=== PATIENT | female | born 1965 | race African-American/Black ===

== ENCOUNTER 2019-07-28 03:31 | Observation (INO) ==
[2019-07-28] MEDS ORDERED: SODIUM CHLORIDE 0.9% 500 ML IV STA (03:51)
[2019-07-28] MEDS ORDERED: ALUM/MAG/SIMETH/LIDO VISC 1:1 30 ML BOTTLE PO STA (03:51)
[2019-07-28] MEDS ORDERED: ONDANSETRON 4 MG/2 ML VIAL IV STA ×2 (03:51→05:22)
[2019-07-28] MEDS ORDERED: PANTOPRAZOLE 40 MG VIAL IV STA (03:51)
[2019-07-28] MEDS ORDERED: PANTOPRAZOLE 40 MG VIAL IV ONE (03:51)
[2019-07-28] MEDS ORDERED: ONDANSETRON 4 MG/2 ML VIAL ONE (03:51)
[2019-07-28] MEDS ORDERED: ALUM/MAG/SIMETH/LIDO VISC 1:1 30 ML BOTTLE PO ONE (03:51)
[2019-07-28 04:14] LABS: Basophils % 0.3 % (0.0-0.8); Eosinophils % 0.4 % (0.00-10.9); Hematocrit 45.1 VOL% (35.7-47.0); Hemoglobin 14.8 GM/DL (12.0-16.0); Immature Granulocytes % 0.2 %; Immature Granulocytes Absolute 0.02 #; Lymphocytes # 2.8 10*3/uL (1.4-4.0); Lymphocytes % 25.8 % (21.3-54.2); Mean Corpuscular HGB Conc 32.8 GM/DL (32-36); Mean Corpuscular Volume 86.6 FL (87-102); Monocytes % 7.6 % (1.7-12.7); Neutrophils % 65.7 % (38.7-73.9); Platelet Count 378 T/CUMM (130-400); Red Blood Count 5.21 MC/CUMM (3.8-5.5); Red Cell Distribution Width 12.6 % (9.3-17.3); White Blood Count 10.7 T/CUMM (4-12)
[2019-07-28 04:48] LABS: Apearance,Urine Slightly Hazy (Clear); Bilirubin,Urine Negative (Negative); Blood, Urine Negative (Negative); Glucose,Urine (UA) >=500 mg/dL (Negative); Ketones,Urine 20 mg/dL (Negative); Mucus,Urine Occasional /LPF (Occasional); Nitrite,Urine Negative (Negative); Protein,Urine 30 MG/DL; RBC,Urine 1 /HPF (0-4); Squamous Epithelial Cell,Urine Occasional /HPF (0-10); Urine Color Yellow (Yellow); Urine Specific Gravity 1.036 (1.001-1.035); WBC,Urine 2 /HPF (0-6)
[2019-07-28 04:48] LABS: Albumin 3.2 G/DL (3.4-5.0); Bilirubin,Total 0.4 MG/DL (0.2-1.0); Calcium 9.3 MG/DL (8.5-10.1); Osmolality,Calculated 278.2 MOS/KG (273-304); Total Protein 8.5 G/DL (6.4-8.3)
[2019-07-28] MEDS: MAGNESIUM CITRATE 300 ML BOTTLE PO STA ×2 (04:58→05:27)
[2019-07-28] MEDS ORDERED: MAGNESIUM CITRATE 300 ML BOTTLE ONE (05:00)
[2019-07-28] MEDS ORDERED: SODIUM CHLORIDE 0.9% 1,000 ML IV STA (05:22)
[2019-07-28] MEDS ORDERED: HYDROmorphone 2 MG/1 ML VIAL IV ONE (05:22)
[2019-07-28] MEDS ORDERED: DEXTROSE 50% 25 GM/50 ML SYRINGE IV PRN (05:31)
[2019-07-28] MEDS ORDERED: ONDANSETRON 4 MG/2 ML VIAL IV PRN (05:31)
[2019-07-28] MEDS ORDERED: GLUCAGON 1 MG VIAL IM PRN (05:31)
[2019-07-28] MEDS ORDERED: HYDROmorphone 2 MG/1 ML VIAL IV PRN (05:36)
[2019-07-28] MEDS: ENOXAPARIN 40 MG/0.4 ML SYRINGE SUBCUT SCH (05:51)
[2019-07-28] MEDS ORDERED: PROMETHAZINE 25 MG/1 ML VIAL IM PRN (06:59)
[2019-07-28] MEDS: INSULIN REGULAR 100 UNIT/ML SUBCUT SCH ×4 (09:47→20:50)
[2019-07-28] MEDS: PANTOPRAZOLE 40 MG TABLET PO SCH (09:47)
[2019-07-28] MEDS: SODIUM CHLOR 0.45% KCL 20 MEQ 20 MEQ/1,000 ML BAG IV SCH ×2 (09:48→16:51)
[2019-07-28] MEDS: LISINOPRIL/HCTZ 20-12.5 MG TABLET PO SCH (12:51)
[2019-07-29] MEDS: SODIUM CHLOR 0.45% KCL 20 MEQ 20 MEQ/1,000 ML BAG IV SCH ×2 (02:00→07:34)
[2019-07-29] MEDS: ENOXAPARIN 40 MG/0.4 ML SYRINGE SUBCUT SCH (06:38)
[2019-07-29 07:04] LABS: Basophils % 0.3 % (0.0-0.8); Eosinophils % 0.3 % (0.00-10.9); Hematocrit 38.8 VOL% (35.7-47.0); Hemoglobin 12.7 GM/DL (12.0-16.0); Immature Granulocytes % 0.3 %; Immature Granulocytes Absolute 0.03 #; Lymphocytes # 2.6 10*3/uL (1.4-4.0); Lymphocytes % 29.4 % (21.3-54.2); Mean Corpuscular HGB Conc 32.7 GM/DL (32-36); Mean Corpuscular Volume 88.2 FL (87-102); Mean Platelet Volume 9.8 FL (9.6-12.0); Monocytes % 6.4 % (1.7-12.7); Neutrophils % 63.3 % (38.7-73.9); Platelet Count 322 T/CUMM (130-400); Red Cell Distribution Width 12.6 % (9.3-17.3)
[2019-07-29 07:23] LABS: Risk Ratio 5.51
[2019-07-29 07:37] LABS: Albumin 2.5 G/DL (3.4-5.0); Bilirubin,Total 0.5 MG/DL (0.2-1.0); Calcium 8.3 MG/DL (8.5-10.1); Osmolality,Calculated 270.2 MOS/KG (273-304); Total Protein 6.4 G/DL (6.4-8.3)
[2019-07-29] MEDS: LISINOPRIL/HCTZ 20-12.5 MG TABLET PO SCH (08:43)
[2019-07-29] MEDS: INSULIN REGULAR 100 UNIT/ML SUBCUT SCH (08:43)
[2019-07-29] MEDS: PANTOPRAZOLE 40 MG TABLET PO SCH (08:44)
[2019-07-29 11:43] VITALS: BP 159/88
== END 2019-07-29 12:56 | disposition home or self-care (01) ==
LOC: N.EDINP 03:31 → N.ED 03:31 → N.EDINP 06:37 → N.3E 06:55
PROVIDERS: ADMIT Internal Medicine; ATTEND Internal Medicine